=== PATIENT | female | born 1970 | race Caucasian/White ===

== ENCOUNTER 2025-08-22 12:08 | Emergency (ER) | payer OTHER ==
[~2025-08-22] VITALS: Ht 152.4 cm; Wt 83.9 kg
[2025-08-22] MEDS ORDERED: CIPRO500 MG PO (14:02)
[2025-08-22] MEDS ORDERED: Ciprofloxacin Hydrochloride 500 MG TAB PO ONE (14:05)
== END 2025-08-22 14:59 | disposition home or self-care (01) ==
LOC: ED 12:08
DX: S90.412A Abrasion, left great toe, initial encounter (principal); X58.XXXA Exposure to other specified factors, initial encounter; Y93.89 Activity, other specified; Y92.89 Other specified places as the place of occurrence of the external cause; Y99.8 Other external cause status